=== PATIENT | male | born 1980 | race Caucasian/White ===

== ENCOUNTER 2018-03-16 14:08 | Emergency (ER) | payer SELFPAY ==
[~2018-03-16] VITALS: Ht 180.3 cm; Wt 72.7 kg
[2018-03-16 14:50] VITALS: Ht 180.3 cm; Wt 72.7 kg
[2018-03-16 15:19] LABS: BASOPHILS 0.2 % (0-2); EOSINOPHILS 1.6 % (0-7); HEMATOCRIT 47.8 % (42.0-54.0); HEMOGLOBIN 17.3 g/dL (13.5-17.5); IMMATURE GRANULOCYTES 0.3 % (0-5); LYMPHOCYTES 29.5 % (15-50); MCH 32.2 pg (26.0-34.0); MCHC 36.2 g/dL (31.0-37.0); MEAN PLATELET VOLUME 10.1 fL (7.4-10.4); MONOCYTES 10.2 % (2-11); NEUTROPHILS 58.2 % (40-80); PLATELET COUNT 187 10x3/uL (130-400); RBC 5.37 10x6/uL (4.20-6.10); RDW 12.6 % (11.5-14.5); WBC 10.3 10x3/uL (4.8-10.8)
[2018-03-16 15:47] LABS: ALBUMIN 4.5 g/dL (3.4-5.0); ANION GAP 14.7 mmol/L (8-16); BILIRUBIN - TOTAL 0.68 mg/dL (0.2-1.3); CALCIUM 9.3 mg/dL (8.5-10.1); CARBON DIOXIDE 26.7 mmol/L (21.0-32.0); CREATININE - SERUM 1.2 mg/dL (0.6-1.3); POTASSIUM - SERUM 3.4 mmol/L (3.5-5.1); PROTEIN - SERUM 8.4 g/dL (6.4-8.2)
[2018-03-16 16:03] LABS: APPEARANCE CLEAR (CLEAR); BILIRUBIN NEGATIVE (NEGATIVE); COLOR DK YELLOW (YELLOW); GLUCOSE NEGATIVE (NEGATIVE); KETONE NEGATIVE (NEGATIVE); NITRITE NEGATIVE (NEGATIVE); PROTEIN TRACE mg/dL (NEGATIVE); UROBILINOGEN NORMAL (NORMAL)
[2018-03-16 16:13] LABS: BACTERIA MODERATE /hpf (NONE SEEN); EPITHELIAL CELLS OCC /hpf (0-5); GRANULAR CAST OCC /lpf (NONE SEEN); MUCUS >1+ /lpf (NONE SEEN); RED CELLS - URINE RARE /hpf (0-5)
[2018-03-16 16:14] LABS: AMORPHOUS SEDIMENT >1+ /lpf (NONE SEEN); WAXY CAST OCC /lpf (NONE SEEN)
== END 2018-03-16 17:00 | disposition left against medical advice (07) ==
LOC: D.ER 14:08
PROVIDERS: Family Medicine
DX: R53.1 Weakness (principal)

== ENCOUNTER 2018-06-12 09:56 | Emergency (ER) | payer MEDICAID ==
[~2018-06-12] VITALS: Ht 180.3 cm; Wt 68.2 kg
[2018-06-12 10:00] VITALS: Ht 180.3 cm; Wt 68.2 kg
[2018-06-12] MEDS ORDERED: CLEOCIN HCL150 MG PO (10:14)
[2018-06-12] MEDS ORDERED: NORCO 5/325 TAB1 TAB PO (10:54)
[2018-06-12 11:05] VITALS: BP 145/94
== END 2018-06-12 11:06 | disposition home or self-care (01) ==
LOC: D.ER 09:56
DX: S61.431A Puncture wound without foreign body of right hand, initial encounter (principal); L08.9 Local infection of the skin and subcutaneous tissue, unspecified; W45.0XXA Nail entering through skin, initial encounter; Y93.89 Activity, other specified; Y92.019 Unspecified place in single-family (private) house as the place of occurrence of the external cause; I10 Essential (primary) hypertension; F17.200 Nicotine dependence, unspecified, uncomplicated

== ENCOUNTER 2018-10-09 13:21 | Emergency (ER) | payer BC ==
[~2018-10-09] VITALS: Ht 180.3 cm; Wt 68.2 kg
[~2018-10-09 13:21] MED LIST: CLEOCIN HCL150 MG PO; NORCO 5/325 TAB1 TAB PO
[2018-10-09 13:42] VITALS: Ht 180.3 cm; Wt 68.2 kg
[2018-10-09] MEDS ORDERED: VIBRAMYCIN 100100 MG PO (15:35)
[2018-10-09] MEDS ORDERED: VENTOLIN HFA18 GM INH (15:35)
[2018-10-09] MEDS ORDERED: TAMIFLU75 MG PO (15:40)
[2018-10-09 16:24] VITALS: BP 135/89
== END 2018-10-09 16:24 | disposition home or self-care (01) ==
LOC: D.ER 13:21
DX: J40 Bronchitis, not specified as acute or chronic (principal); R09.89 Other specified symptoms and signs involving the circulatory and respiratory systems; I10 Essential (primary) hypertension